=== PATIENT | male | born 1980 | race Caucasian/White ===

== ENCOUNTER 2020-11-03 11:53 | Inpatient (IN) | payer MEDICAID ==
[~2020-11-03] VITALS: Ht 167.6 cm; Wt 63.1 kg
[~2020-11-03 11:53] MED LIST: ASPI-231 PO; PANT40TA2 PO
[2020-11-03 14:04] LABS: Hematocrit 8.6 % (41.0-53.0); Mean Corpuscular Hemoglobin 19.3 pg (28.0-32.0); Mean Corpuscular Volume 64.2 fL (80.0-100.0); Platelet Count (auto) 22 10^3/uL (140-450); Red Blood Cells 1.34 10^6/uL (4.5-5.90)
[2020-11-03 14:10] LABS: Hemoglobin 2.6 g/dL (13.5-17.5)
[2020-11-03 14:12] LABS: Albumin 2.4 g/dL (3.4-5.0); Calcium 7.8 mg/dL (8.5-10.1); Potassium 5.1 mmol/L (3.5-5.1)
[2020-11-03 14:13] LABS: Basophils % (manual) 0 (0.0-2.0); Promyelocytes % 0; Reactive Lymphocytes 0
[2020-11-03 14:14] LABS: INR 1.89 (0.9-1.15); Partial Thromboplastin Time 30.3 sec (23.0-31.2)
[2020-11-03 14:21] LABS: BUN/Creatinine Ratio 25.5; Bilirubin, Total 1.3 mg/dL (0.2-1.0); CRP High Sensitivity 10.7 mg/dL (< 0.3); Total Protein 6.8 g/dL (6.4-8.2)
[2020-11-03] MEDS ORDERED: DOXYCYCLINE 100MG/250ML 250 ML IV ONE (17:30)
[2020-11-03] MEDS ORDERED: PANTOPRAZOLE 40 MG/10 ML VIAL INJ IV ONE (17:30)
[2020-11-03] MEDS ORDERED: IOHEXOL 350 MG/ML 100ML IJ ONE (17:46)
[2020-11-03 19:23] VITALS: BP 98/43
[2020-11-03 19:38] VITALS: BP 100/46
[2020-11-03 20:01] LABS: Band Neutrophils % (manual) 13; Blast Cells 6; Eosinophils % (manual) 1 (0-7); Lymphocytes % (manual) 9 (10.0-50.0); Metamyelocytes % 10; Monocytes % (manual) 1 (0-12); Myelocytes % 11
[2020-11-03 22:00] VITALS: BP 97/49
[2020-11-03 22:15] VITALS: BP 99/55
[2020-11-03] MEDS ORDERED: NITROGLYCERIN 0.4 MG SL TAB SL PRN (23:45)
[2020-11-03] MEDS ORDERED: DOCUSATE SOD 100 MG CAP PO PRN (23:45)
[2020-11-03] MEDS ORDERED: HYDROcodone-ACET 5/325MG TAB PO PRN (23:45)
[2020-11-03] MEDS ORDERED: MORPHINE SULF INJ 2 MG/ML SYRINGE 1ML IV PRN (23:45)
[2020-11-03] MEDS ORDERED: ACETAMINOPHEN 325 MG TAB PO PRN (23:45)
[2020-11-03] MEDS ORDERED: SODIUM CHLORIDE 0.9% 1,000 ML IV SCH (23:45)
[2020-11-03] MEDS ORDERED: DOXYCYCLINE 100MG/250ML 250 ML IV SCH (23:45)
[2020-11-03] MEDS ORDERED: ONDANSETRON HCL 4 MG/2 ML VIAL IV PRN (23:45)
[2020-11-04] VITALS (8 sets, daily range): BP systolic 96–121; BP diastolic 52–80
[2020-11-04 05:51] LABS: Platelet Count (auto) 28 10^3/uL (140-450)
[2020-11-04 05:53] LABS: Hematocrit 15.7 % (41.0-53.0); Mean Corpuscular Hemoglobin 24.5 pg (28.0-32.0); Mean Corpuscular Hgb Conc. 33.1 g/dL (32.0-36.0); Red Blood Cells 2.12 10^6/uL (4.5-5.90); White Blood Cell 14.3 10^3/uL (4.4-10.8)
[2020-11-04 06:13] LABS: Albumin 2.2 g/dL (3.4-5.0); Calcium 7.5 mg/dL (8.5-10.1); Potassium 4.3 mmol/L (3.5-5.1)
[2020-11-04 06:20] LABS: Bilirubin, Total 1.7 mg/dL (0.2-1.0); Hemoglobin 5.2 g/dL (13.5-17.5); Red Cell Distribution Width 31.6 % (11.8-14.3); Total Protein 6.4 g/dL (6.4-8.2)
[2020-11-04 06:21] LABS: Band Neutrophils % (manual) 0; Basophils % (manual) 0 (0.0-2.0); Blast Cells 0; Eosinophils % (manual) 0 (0-7); Metamyelocytes % 0; Myelocytes % 0; Promyelocytes % 0; Reactive Lymphocytes 0
[2020-11-04 06:48] LABS: Lymphocytes % (manual) 40 (10.0-50.0); Monocytes % (manual) 15 (0-12)
[2020-11-04 09:02] LABS: Urine Bacteria FEW /hpf (None Seen); Urine Blood TRACE /uL (Negative); Urine WBC 12 /hpf (0 - 3)
[2020-11-04] MEDS ORDERED: ZINC SULFATE 220mg CAP or TAB PO SCH (10:00)
[2020-11-04] MEDS ORDERED: ASCORBIC ACID 500 MG TAB PO SCH (10:00)
[2020-11-04] MEDS ORDERED: MULTIPLE VITAMIN TAB PO SCH (10:00)
[2020-11-04] MEDS: PANTOPRAZOLE 40 MG/10 ML VIAL INJ IV SCH (11:06)
[2020-11-04] MEDS ORDERED: cefTRIAXone 1GM/50ML D5W 50 ML IV ONE (12:00)
[2020-11-04] MEDS ORDERED: VANCOMYCIN 1GM/250ML 250 ML IV ONE (12:00)
[2020-11-04] MEDS ORDERED: VANCOMYCIN PER PHARMACY 0 MG IV SCH (12:00)
[2020-11-04 12:33] LABS: Amphetamine Screen, Urine NEGATIVE (NEGATIVE); Barbiturate Scree,Urine NEGATIVE (NEGATIVE); Benzodiazephine Screen, Urine NEGATIVE (NEGATIVE); Cannabinoid Screen, Urine NEGATIVE (NEGATIVE); Cocaine Screen, Urine NEGATIVE (NEGATIVE); Opiate Scree,Urine NEGATIVE (NEGATIVE); Phencyclidine Screen, Urine NEGATIVE (NEGATIVE)
[2020-11-04 12:34] LABS: Alcohol, Urine < 3.0 mg/dL (0-10)
[2020-11-04 13:03] LABS: % Iron Saturation 110.6 % (20-55)
[2020-11-05] VITALS (13 sets, daily range): BP systolic 112–126; BP diastolic 51–64
[2020-11-05] MEDS: VANCOMYCIN 1GM/250ML 250 ML IV SCH ×3 (02:48→17:50)
[2020-11-05 07:56] LABS: Hematocrit 21.6 % (41.0-53.0); Hemoglobin 7.2 g/dL (13.5-17.5); Mean Corpuscular Hgb Conc. 33.2 g/dL (32.0-36.0)
[2020-11-05 07:58] LABS: Mean Corpuscular Hemoglobin 25.9 pg (28.0-32.0); Mean Corpuscular Volume 78.1 fL (80.0-100.0); Platelet Count (auto) 30 10^3/uL (140-450); Red Blood Cells 2.77 10^6/uL (4.5-5.90); White Blood Cell 12.1 10^3/uL (4.4-10.8)
[2020-11-05 08:03] LABS: Albumin 2.1 g/dL (3.4-5.0); Calcium 7.2 mg/dL (8.5-10.1); Potassium 3.7 mmol/L (3.5-5.1)
[2020-11-05 08:05] LABS: Red Cell Distribution Width 27.5 % (11.8-14.3)
[2020-11-05 08:06] LABS: BUN/Creatinine Ratio 28.4; Bilirubin, Total 3.3 mg/dL (0.2-1.0); Total Protein 6.2 g/dL (6.4-8.2)
[2020-11-05 08:07] LABS: Basophils % (manual) 0 (0.0-2.0); Eosinophils % (manual) 0 (0-7); Reactive Lymphocytes 0
[2020-11-05 08:31] LABS: Band Neutrophils % (manual) 12; Blast Cells 1; Lymphocytes % (manual) 25 (10.0-50.0); Metamyelocytes % 5; Monocytes % (manual) 7 (0-12); Myelocytes % 6; Promyelocytes % 1
[2020-11-05] MEDS: cefTRIAXone 1GM/50ML D5W 50 ML IV SCH (09:33)
[2020-11-05] MEDS: methylPREDNISolone SOD SUCC 125 MG/2 ML VL IV SCH ×2 (09:34→21:26)
[2020-11-05] MEDS: PANTOPRAZOLE 40 MG/10 ML VIAL INJ IV SCH (09:34)
[2020-11-05 12:58] LABS: Hepatitis B Surface Antigen Negative (Negative)
[2020-11-05 12:59] LABS: Hepatitis A Ab IgM Negative; Hepatitis B Core IgM Negative; Hepatitis C Antibody Negative (Negative)
[2020-11-06] MEDS: VANCOMYCIN 1GM/250ML 250 ML IV SCH (03:22)
[2020-11-06 05:00] VITALS: BP 95/57
[2020-11-06] MEDS: cefTRIAXone 1GM/50ML D5W 50 ML IV SCH (08:13)
[2020-11-06 08:15] VITALS: BP 106/62
[2020-11-06 09:00] VITALS: BP 106/62
[2020-11-06] MEDS: PANTOPRAZOLE 40 MG/10 ML VIAL INJ IV SCH (09:29)
[2020-11-06] MEDS: methylPREDNISolone SOD SUCC 125 MG/2 ML VL IV SCH ×2 (09:30→21:06)
[2020-11-06 09:31] LABS: Platelet Count (auto) 21 10^3/uL (140-450); White Blood Cell 10.1 10^3/uL (4.4-10.8)
[2020-11-06 09:33] LABS: Hematocrit 22.7 % (41.0-53.0); Hemoglobin 7.7 g/dL (13.5-17.5); Mean Corpuscular Volume 79.5 fL (80.0-100.0); Red Blood Cells 2.86 10^6/uL (4.5-5.90)
[2020-11-06 09:38] LABS: Red Cell Distribution Width 28.3 % (11.8-14.3)
[2020-11-06 09:39] LABS: Basophils % (manual) 0 (0.0-2.0); Eosinophils % (manual) 0 (0-7); Reactive Lymphocytes 0
[2020-11-06 09:54] LABS: Potassium 3.9 mmol/L (3.5-5.1)
[2020-11-06 10:38] LABS: Albumin 1.9 g/dL (3.4-5.0); BUN/Creatinine Ratio 33.8; Bilirubin, Total 2.3 mg/dL (0.2-1.0); Calcium 7.3 mg/dL (8.5-10.1); Total Protein 6.1 g/dL (6.4-8.2)
[2020-11-06 11:39] LABS: Band Neutrophils % (manual) 1; Blast Cells 4; Lymphocytes % (manual) 38 (10.0-50.0); Metamyelocytes % 8; Monocytes % (manual) 16 (0-12); Myelocytes % 6; Promyelocytes % 8
[2020-11-06 13:00] VITALS: BP 116/61
[2020-11-06 16:30] VITALS: BP 105/62
[2020-11-06] MEDS ORDERED: methylPREDNISolone SOD SUCC 125 MG/2 ML VL IV ONE (19:15)
[2020-11-06] MEDS ORDERED: diphenhdrAMINE HCL 50 MG/1 ML VL IV ONE (19:15)
[2020-11-06 20:00] VITALS: BP 107/63
[2020-11-07] VITALS (9 sets, daily range): BP systolic 99–132; BP diastolic 49–76
[2020-11-07 07:42] LABS: Hemoglobin 7.7 g/dL (13.5-17.5)
[2020-11-07 07:45] LABS: Hematocrit 23.1 % (41.0-53.0); Mean Corpuscular Hemoglobin 26.4 pg (28.0-32.0); Mean Corpuscular Hgb Conc. 33.5 g/dL (32.0-36.0); Mean Corpuscular Volume 78.8 fL (80.0-100.0); Red Blood Cells 2.93 10^6/uL (4.5-5.90); White Blood Cell 8.5 10^3/uL (4.4-10.8)
[2020-11-07 07:50] LABS: Red Cell Distribution Width 28.1 % (11.8-14.3)
[2020-11-07 07:52] LABS: Basophils % (manual) 0 (0.0-2.0); Eosinophils % (manual) 0 (0-7); Potassium 4.2 mmol/L (3.5-5.1); Reactive Lymphocytes 0
[2020-11-07 07:53] LABS: Albumin 2.2 g/dL (3.4-5.0); Calcium 7.6 mg/dL (8.5-10.1)
[2020-11-07 07:54] LABS: Bilirubin, Total 1.3 mg/dL (0.2-1.0); Total Protein 6.5 g/dL (6.4-8.2)
[2020-11-07] MEDS: methylPREDNISolone SOD SUCC 125 MG/2 ML VL IV SCH ×2 (09:11→21:31)
[2020-11-07] MEDS: cefTRIAXone 1GM/50ML D5W 50 ML IV SCH (09:12)
[2020-11-07] MEDS: PANTOPRAZOLE 40 MG/10 ML VIAL INJ IV SCH (09:12)
[2020-11-07 09:23] LABS: Band Neutrophils % (manual) 9; Blast Cells 5; Lymphocytes % (manual) 24 (10.0-50.0); Metamyelocytes % 13; Monocytes % (manual) 7 (0-12); Myelocytes % 5; Promyelocytes % 3
[2020-11-07] MEDS: diphenhdrAMINE HCL 50 MG/1 ML VL IV PRN ×2 (09:52→17:57)
[2020-11-08] MEDS: diphenhdrAMINE HCL 50 MG/1 ML VL IV PRN ×2 (02:24→11:38)
[2020-11-08 05:08] VITALS: BP 117/63
[2020-11-08 06:34] LABS: Hemoglobin 7.3 g/dL (13.5-17.5)
[2020-11-08 06:38] LABS: Hematocrit 22.1 % (41.0-53.0); Mean Corpuscular Hemoglobin 26.5 pg (28.0-32.0); Mean Corpuscular Volume 80.3 fL (80.0-100.0); Platelet Count (auto) 24 10^3/uL (140-450); Red Blood Cells 2.76 10^6/uL (4.5-5.90); White Blood Cell 6.9 10^3/uL (4.4-10.8)
[2020-11-08 06:48] LABS: Red Cell Distribution Width 27.8 % (11.8-14.3)
[2020-11-08 06:50] LABS: Basophils % (manual) 0 (0.0-2.0); Eosinophils % (manual) 0 (0-7); Reactive Lymphocytes 0
[2020-11-08 07:06] LABS: Albumin 2.1 g/dL (3.4-5.0); BUN/Creatinine Ratio 20.6; Calcium 7.3 mg/dL (8.5-10.1); Total Protein 6.1 g/dL (6.4-8.2)
[2020-11-08 07:48] LABS: Platelet Count (auto) 12 10^3/uL (140-450)
[2020-11-08 08:11] LABS: Band Neutrophils % (manual) 15; Blast Cells 1; Lymphocytes % (manual) 22 (10.0-50.0); Metamyelocytes % 20; Monocytes % (manual) 6 (0-12); Myelocytes % 12; Promyelocytes % 5
[2020-11-08] MEDS: cefTRIAXone 1GM/50ML D5W 50 ML IV SCH (08:57)
[2020-11-08 09:00] VITALS: BP 118/65
[2020-11-08] MEDS: PANTOPRAZOLE 40 MG/10 ML VIAL INJ IV SCH (12:17)
[2020-11-08] MEDS: methylPREDNISolone SOD SUCC 125 MG/2 ML VL IV SCH (12:19)
[2020-11-08 13:00] VITALS: BP 129/66
== END 2020-11-08 16:05 | disposition home or self-care (01) | DRG 720 ==
LOC: ER 11:53 → TELE 11:54 → TELE-WESTW 11-04 20:50
PROVIDERS: ADMIT Nurse Practitioner Family; ATTEND Family Medicine
PROC: 30233N1 Transfusion of Nonautologous Red Blood Cells into Peripheral Vein, Percutaneous Approach (ICD-10-PCS; 2020-11-03)
PROC: 30233R1 Transfusion of Nonautologous Platelets into Peripheral Vein, Percutaneous Approach (ICD-10-PCS; principal; 2020-11-04)
DX: A41.9 Sepsis, unspecified organism (principal); I21.A1 Myocardial infarction type 2; D69.3 Immune thrombocytopenic purpura; J18.9 Pneumonia, unspecified organism; E87.1 Hypo-osmolality and hyponatremia; D61.818 Other pancytopenia; R65.20 Severe sepsis without septic shock; F17.210 Nicotine dependence, cigarettes, uncomplicated; K80.20 Calculus of gallbladder without cholecystitis without obstruction; N30.90 Cystitis, unspecified without hematuria; F32.9 Major depressive disorder, single episode, unspecified; Z20.828 Contact with and (suspected) exposure to other viral communicable diseases; D50.9 Iron deficiency anemia, unspecified; R16.1 Splenomegaly, not elsewhere classified; E86.9 Volume depletion, unspecified; Z88.0 Allergy status to penicillin
CPT/HCPCS: 36415; 70450; 71045; 71260; 74177; 76705; 78226; 80053; 80074; 80307; 81001; 82140; 82728; 83540; 83550; 83615; 84484; 85007; 85027; 85045; 85610; 85730; 86141; 86850; 86870; 86900; 86901; 86922; 87040; 87086; 87426; 99291; C9113; G0378; J0696; J3490